=== PATIENT | female | born 1955 | race Caucasian/White ===

== ENCOUNTER 2016-10-15 07:56 | Day surgery (SDC) | payer OTHER ==
--- NOTE | 2016-10-08 12:14 | HP ---
DATE OF ADMISSION: 10/15/2016 DATE OF DICTATION: 10/07/2016 Patient is to be admitted through the ambulatory surgical service in the near future, date to be determined. HISTORY: This is a 61-year-old woman who has had a rather longstanding history of right breast cancer diagnosed in 2003, managed with surgery, chemotherapy, and radiation therapy. Patient was followed very closely by the medical oncology service. Over the course of the past several months, she has developed several subcutaneous nodules of undetermined etiology. Request by medical oncology service for sampling. The largest of these nodules lies at the level of the left upper back. Left upper back, she presents for sampling. PAST MEDICAL HISTORY: Essentially nil otherwise. No history of hypertension, heart disease, diabetes, respiratory, renal, or hepatic insufficiency. PAST SURGICAL HISTORY: Significant for hip replacement, right breast partial mastectomy, and section. ALLERGIES: None known. REGULAR MEDICATIONS: Faslodex, Arimidex. SOCIAL HISTORY: Negative for tobacco. Patient did smoke up until 1979. Positive alcohol 6 ounces weekly. FAMILY HISTORY: Father age 73, history of gallbladder cancer. Mother age 85 in good health. Siblings, one with heart disease, one with melanoma. REVIEW OF SYSTEMS: Otherwise, nil. PHYSICAL EXAMINATION: Skin: Patient has a 2.5 firm, somewhat fixed mass involving the left upper back of undetermined etiology. No obvious satellite lesions or regional lymphadenopathy. There is also a small subcentimeter subcutaneous nodule at the left of the right lateral chest wall. There are others including her left preauricular region as well as her left lower abdominal wall. IMPRESSION: Multiple subcutaneous nodules in this patient with a history of breast cancer followed since 2003 by the medical oncology service. PLAN: At this juncture, we will proceed with excision of the large fixed subcutaneous mass at the level of the left upper back. We will sample the right lateral chest wall lesion, as well. Indications, alternatives, possible complications were reviewed. Consent obtained. Patient is to be seen preoperatively by her PMD. Please refer to those notes for those details. SONY MENDOZA M.D. TANISHA/[id number] cc: Tylor Reed MD
[2016-10-08 13:07] VITALS: BMI 23.3
[2016-10-15] MEDS ORDERED: LIDOCAINE 1%/EPI 1:100000 (20 ML MULTI DOSE VIAL) ONE (09:33)
[2016-10-15] MEDS ORDERED: MIDAZOLAM HCL 2 MG/2 ML SINGLE DOSE VIAL ONE (09:36)
[2016-10-15] MEDS ORDERED: ONDANSETRON 4 MG/2 ML VIAL ONE (10:13)
[2016-10-15] MEDS ORDERED: DEXAMETHASONE SOD PHOSPHATE 4 MG/1 ML VIAL ONE (10:13)
[2016-10-15] MEDS ORDERED: LIDOCAINE 1%/EPI 1:100000 (50 ML MULTI DOSE VIAL) INF ONE (10:40)
[2016-10-15 11:26] VITALS: TEMP 98.1
--- NOTE | 2016-10-15 11:50 | OP ---
DATE OF OPERATION: 10/15/2016 PREOPERATIVE DIAGNOSIS: Soft tissue mass left upper back/right lateral chest wall (history of breast cancer). POSTOPERATIVE DIAGNOSIS: Soft tissue mass left upper back/right lateral chest wall (history of breast cancer). PROCEDURE: Excision left upper back subfascial soft tissue mass/intermediate wound closure (4 cm), excision right lateral chest wall soft tissue mass (intermediate wound closure 3 cm). OPERATING SURGEON: Jose Angel Gonzales MD ANESTHESIA: [place]. Marie Bhakta[place] [place] HISTORY: A 61-year-old woman with a history of breast cancer followed by the Oncology service who went on to develop two new soft tissue masses, one of the left upper back, one of the right lateral chest wall. Request made by Medical Oncology service for excision of the mass subcutaneous metastasis. Indications, alternatives, possible complications were reviewed and consent obtained. DESCRIPTION OF PROCEDURE: With the patient first in the prone position and after IV sedation, the left upper back was prepped and draped using chlorhexidine. A 4- cm elliptical longitudinal incision was made encompassing the mass with surrounding skin and subcutaneous tissue. The incision was deepened to the level of the fascia below. The mass was noted to be emanating from the bed of the muscle below the fascia. It was excised in its entirety. After adequate hemostasis, the fascia at the muscle layer was closed using interrupted 3-0 chromic sutures. The subcutaneous tissues were approximated with interrupted 3-0 chromic sutures, subcuticular was approximated with 3-0 Vicryl sutures, skin edges were approximated using a continuous 5-0 nylon suture. Dressing was applied. Directing our attention to the right lateral chest wall, a 3-cm longitudinal incision was made about the lesion in question after field block was placed. Again, the lesion was excised in its entirety. It was confined to the subcutaneous space. After delivery of the mass, the wound was closed in layers. The subcutaneous tissue was approximated with interrupted 3-0 chromic sutures, subcuticular was approximated with interrupted 4-0 Biosyn sutures, skin was closed using continuous 5-0 nylon suture. Bacitracin and dressings were applied. Instrument count correct. Blood loss minimal. Specimens included soft tissue subfascial mass left upper back as well as soft tissue subcutaneous mass right lateral chest wall. JOSE ANGEL GONZALES M.D. TANISHA/[id number] MTDD
[2016-10-15 12:27] VITALS: BP 126/75; PULSE 88
--- NOTE | 2016-10-21 09:35 | PATH ---
Surgical Pathology Report Patient Name: RUBIO MCMANUS [facility]. Rec. #: [id number] /Age/Gender: 1955 (Age: 61) / F Account: [id number] Location: [facility] Taken: 10/15/2016 Received: 10/15/2016 Reported: 10/21/2016 Physicians: Joleen Talbot Specimen(s) Received A: SOFT TISSUE MASS UPPER BACK B: SOFT TISSUE MASS RIGHT LATERAL CHEST WALL Clinical History Left back mass Right lateral chest wall mass Final Diagnosis A,B. SKIN AND SOFT TISSUE, LEFT UPPER BACK AND RIGHT LATERAL CHEST WALL, EXCISION: INVOLVEMENT BY METASTATIC MAMMARY CARCINOMA (SEE COMMENT). Comment: prior history of breast carcinoma is noted. Immunohistochemical stains performed at [place], [place] ([id number]) on block A1 and interpreted at [facility] show the tumor cells are positive for CK7, MARYLOU-3, mammaglobin, ER, NJ and are negative for CK20 and GCDFP15. The morphologic findings and the immunoprofile are consistent with involvement by metastatic carcinoma of mammary origin. Results of ER, [place] and Her2 IHC studies performed at [place], [place] ([id number]) on block A1 are as follows: ER (clone [id number] mouse monoclonal antibody by [employer]): >90% nuclear staining with strong intensity (Positive). NJ (clone16 mouse monoclonal antibody by [employer]):~50% nuclear staining with moderate intensity (Positive). Her2 IHC (EP3 from [employer], formerly known as [id number], using Krishnan Polymer Refine detection kit):1+ (Negative) Positive and negative controls (internal if applicable) show appropriate results. Formalin fixation and cold ischemic times are within current ASCO/CAP recommendations for ER, [place] and Her2 testing. Electronically Signed Adolfo Garcia M.D. Gross Description A. Received in formalin labeled "soft tissue mass left upper back" is a 4.0 x 1.4 cm rodriguez, elliptical, unoriented portion of skin excised to depth of 1.9 cm. The epidermal surface is unremarkable. Sectioning reveals a 1.7 x 1.1 x 1.0 cm homogeneous rodriguez, firm, solid mass. Lion Trainer sections of the mass are submitted in 2 cassettes. B. Received in formalin labeled "soft tissue mass right lateral chest wall" is a 1.8 x 0.8 cm rodriguez, elliptical portion of skin excised to a depth of 0.9 cm. The epidermal surface is unremarkable. Sectioning reveals focal rodriguez, firm parenchyma. Lion Trainer sections are submitted in one cassette. Time to fixation: <1h Formalin fixation time: ~29h 10/18/201610/18/2016
== END 2016-10-15 12:20 | disposition home or self-care (01) ==
LOC: FASU 07:56
PROVIDERS: ATTEND Surgery
PROC: 0JB60ZZ Excision of Chest Subcutaneous Tissue and Fascia, Open Approach (ICD-10-PCS; 2016-10-15)
PROC: 0JB70ZZ Excision of Back Subcutaneous Tissue and Fascia, Open Approach (ICD-10-PCS; principal; 2016-10-15 10:18)
DX: D21.3 Benign neoplasm of connective and other soft tissue of thorax (principal); D21.6 Benign neoplasm of connective and other soft tissue of trunk, unspecified
CPT/HCPCS: 88305-TC; 88342-TC